=== PATIENT | female | born 1955 | race Caucasian/White ===

== ENCOUNTER → 2020-02-24 11:29 | Outpatient (CLI) | payer BC ==
[~2020-02-24 11:29] MED LIST: ALEVE220 MG PO; ALLEGRA ALLERG180 MG PO; LISINOPRIL2.5 MG PO; NASONEX NASAL S17 GM NS
[2020-02-24 12:37] LABS: HEMATOCRIT 39.8 % (36.0-48.0); HEMOGLOBIN 12.6 g/dL (12-16); LYMPHOCYTES 49.3 % (15-50); MCH 28.5 pg (26.0-34.0); MCHC 31.7 g/dL (31.0-37.0); MEAN PLATELET VOLUME 8.9 fL (7.4-10.4); NEUTROPHILS 45.2 % (40-80); PLATELET COUNT 486 10x3/uL (130-400); RBC 4.42 10x6/uL (4.00-5.40); WBC 9.5 10x3/uL (4.8-10.8)
[2020-02-24 13:58] LABS: ERYTHROCYTE SEDIMENTATION RATE 2 mm/hr (0-30)
[2020-02-25 09:08] LABS: ANA REFLEX - DIRECT Negative (Negative)
[2020-02-26 15:09] LABS: ANCA - ANTIMYELOPEROXIDASE <9.0 U/mL (0.0-9.0); ANCA - ANTIPROTEINASE 3 <3.5 U/mL (0.0-3.5); ANCA - ATYPICAL <1:20 titer (Neg:<1:20); ANCA - CYTOPLASMIC <1:20 titer (Neg:<1:20); ANCA - PERINUCLEAR <1:20 titer (Neg:<1:20)
== END | disposition home or self-care (01) ==
LOC: D.LAB 11:29
PROVIDERS: ATTEND Otolaryngology
DX: R51 Headache (principal); G90.01 Carotid sinus syncope